=== PATIENT | female | born 1950 | race Caucasian/White ===

== ENCOUNTER 2016-09-18 11:07 | Emergency (ER) | payer MEDICARE, OTHER | END 2016-09-18 12:30 | disposition home or self-care (01) | LOC: ER 11:07 | DX: S93.401A Sprain of unspecified ligament of right ankle, initial encounter (principal); X50.0XXA Overexertion from strenuous movement or load, initial encounter; Y92.019 Unspecified place in single-family (private) house as the place of occurrence of the external cause; M77.31 Calcaneal spur, right foot; Z88.8 Allergy status to other drugs, medicaments and biological substances; Z91.013 Allergy to seafood; Z79.899 Other long term (current) drug therapy; Z79.84 Long term (current) use of oral hypoglycemic drugs | CPT/HCPCS: 73610; 73630; 99070; 99283 ==